=== PATIENT | female | born 1960 | race Caucasian/White ===

== ENCOUNTER → 2025-02-24 12:32 | Outpatient (REF) | payer MEDICARE, SELFPAY | LOC: HWWDC 12:32 | DX: Z12.31 Encounter for screening mammogram for malignant neoplasm of breast (principal) | CPT/HCPCS: 77063; 77067 ==

== ENCOUNTER → 2025-03-03 07:58 | Outpatient (REF) | payer MEDICARE, SELFPAY | LOC: HWRAD 07:58 | PROVIDERS: ATTENDING PHYSICIAN Nurse Practitioner Adult Health | DX: Z78.0 Asymptomatic menopausal state (principal) | CPT/HCPCS: 77080 ==